=== PATIENT | female | born 1995 | race Caucasian/White ===

== ENCOUNTER 2020-04-08 10:34 | Outpatient (CLI) | payer BC ==
[~2020-04-08] VITALS: Ht 180.3 cm; Wt 93.6 kg
--- NOTE | 2020-04-08 10:45 | NUR ---
Pt arrives on unit ambulatory with spouse. States "falling last night after triping over a door, getting out of a [id number]. I fell on my left arm, and then fell to my left side then onto my back." Denies ctx, vaginal bleeding, LOF, and reports GFM. EFM x2 and toco applied. VSS. Reactive FHR strip cat 1 x2. Admission assessment completed. Dr. Ohara notified. Orders to observe x 1 hour and can discharge if FHR remains Cat 1.
[2020-04-08] MEDS ORDERED: PRENATAL TABLET PO (10:53)
[2020-04-08] MEDS ORDERED: FERROUSGLUC256MG (10:54)
[2020-04-08] MEDS ORDERED: TYLENOL 500MG500 MG PO (10:54)
[2020-04-08 11:15] VITALS: BP 139/86; PULSE 118
[2020-04-08 11:46] VITALS: BP 128/86; PULSE 95
== END 2020-04-08 11:50 | disposition home or self-care (01) ==
LOC: LDRO 10:34
DX: O9A.213 Injury, poisoning and certain other consequences of external causes complicating pregnancy, third trimester (principal); Z3A.31 31 weeks gestation of pregnancy

== ENCOUNTER 2020-04-30 16:12 | Outpatient (CLI) | payer BC ==
[~2020-04-30] VITALS: Ht 188 cm; Wt 97.3 kg
[~2020-04-30 16:12] MED LIST: FERROUSGLUC256MG; PRENATAL TABLET PO; TYLENOL 500MG500 MG PO
--- NOTE | 2020-04-30 16:15 | NUR ---
Pt arrives on unit ambulatory with spouse for pelvic pressure and back pain starting last night that increased at 1400. Denies LOF, vaginal bleeding, reports GFM. Changed into clean gown. EFM x2 and toco applied. VSS. Admission assessment complete. SVE per this RN /-2. Dr. Ohara notified. Orders for terb and betamethasone. See EMAR.
[2020-04-30 17:20] VITALS: BP 114/92; PULSE 108; TEMP 98.2
[2020-04-30 17:28] VITALS: BP 127/79; PULSE 109
== END 2020-04-30 17:35 | disposition home or self-care (01) ==
LOC: LDRO 16:12
DX: O26.93 Pregnancy related conditions, unspecified, third trimester (principal); Z3A.34 34 weeks gestation of pregnancy
CPT/HCPCS: J0702; J3105

== ENCOUNTER 2020-05-01 07:33 | Outpatient (CLI) | payer BC ==
[~2020-05-01] VITALS: Ht 188 cm; Wt 93.4 kg
--- NOTE | 2020-05-01 08:00 | NUR ---
PATIENT HERE AT 0715 STATING SHE IS HERE FOR A BETAMETHASONE INJECTION. PATIENT ON EFM. VITALS OBTAINED. DR STAUFFER CALLED AT 0732 FOR ORDERS. ORDER FOR NST AND BETAMETHASON AND SEND PATIENT HOME. PATIENT HERE WITH . PATIENT DENIES LEAKING OF FLUID, BLEEDING, OR CONTRACTIONS. IRRIBILITY TRACED ON EFM. PATIENT OFF EFM AT 0751- PATIENT GIVEN INSTRUCTIONS ON EARLY LABOR AND BLEEDING. THIS NURSE STATED TO PATIENT THAT IF CONTRACTIONS ARE CLOSER THAN 5 MINS APART, COME BACK. ANY BLEEDING OR LEAKING OF FLUID, PLEASE RETURN. PATIENT UNDERSTOOD. 0800- AMBULATED OFF UNIT WITH
== END 2020-05-01 08:00 | disposition home or self-care (01) ==
LOC: LDRO 07:33
DX: Z34.93 Encounter for supervision of normal pregnancy, unspecified, third trimester (principal); Z3A.34 34 weeks gestation of pregnancy; Z79.52 Long term (current) use of systemic steroids
CPT/HCPCS: J0702

== ENCOUNTER 2020-05-05 13:57 | Outpatient (CLI) | payer BC ==
[~2020-05-05] VITALS: Ht 182.9 cm; Wt 93.6 kg
--- NOTE | 2020-05-05 14:10 | NUR ---
1410- 35.5 G1L0 arrives on unit with complaints of back pain that comes and goes that started on Sunday. Ambulatory to [facility]4 with spouse. Oriented to room. Instructed to change into gown. 1415- RN at bedside. EFM explained and placed. SVE by Aamir Gould RN. 3. Patient reports normal movement x2. Denies any LOF or VB. Assessment completed. VS obtained.
[2020-05-05 14:22] VITALS: BP 117/77; PULSE 104; TEMP 98.9
--- NOTE | 2020-05-05 14:38 | NUR ---
1438- Roles updated on patient. See physician notification. 1450- Patient and family updated on plan of care. Baby A & B with Cat I strips. EFM off. Patient up to bathroom to change. 1500- Discharge instructions reviewed with patient and who verbalize understanding. Ambulatory off unit.
[2020-05-05 14:50] VITALS: BP 114/74; PULSE 106; TEMP 98.9
== END 2020-05-05 15:00 | disposition home or self-care (01) ==
LOC: LDRO 13:57
DX: O26.893 Other specified pregnancy related conditions, third trimester (principal); M54.9 Dorsalgia, unspecified; Z3A.35 35 weeks gestation of pregnancy

== ENCOUNTER → 2020-05-18 | Outpatient (CLI) | payer BC ==
[~2020-05-18] MED LIST changes: +MOTRIN 800800 MG/TAB PO; +NATURAL IRON65 MG; +PERCOCET 325 MG1 TA2 PO
== END | disposition still patient (30) ==
LOC: ZCOL.LAB 08:00
DX: Z20.828 Contact with and (suspected) exposure to other viral communicable diseases (principal)

== ENCOUNTER 2020-05-21 08:35 | Inpatient (IN) | payer BC ==
[2020-05-21] VITALS (18 sets, daily range): BP systolic 110–136; BP diastolic 65–95; PULSE 71–104; TEMP 97.6–98.3
[~2020-05-21] VITALS: Ht 181.6 cm; Wt 97.7 kg
[~2020-05-21 08:35] MED LIST changes: -MOTRIN 800800 MG/TAB PO; -NATURAL IRON65 MG; -PERCOCET 325 MG1 TA2 PO
[2020-05-21] MEDS ORDERED: NATURAL IRON65 MG (08:53)
[2020-05-21 09:50] LABS: BASO % 0.4 % (0.0-2.0); EOS % 0.5 % (0-4.0); GRAN # 5.8 (1.4-6.5); GRAN % 74.4 % (42.2-75.2); HEMOGLOBIN 11.8 g/dl (12.5-16.0); LYMPH # 1.4 (1.2-3.4); LYMPH % 17.7 % (20.0-51.0); MEAN CELL VOLUME 76 fl (80.0-100.0); MEAN CORPUSCULAR HEMOGLOBIN 24 pg (27.0-31.0); MEAN CORPUSCULAR HGB CONC 32 g/dl (33.0-37.0); MEAN PLATELET VOLUME 10.6 fl (7.4-10.4); MONO # 0.5 (0.1-0.6); MONO % 6.6 % (1.7-9.3); PLATELET COUNT 200 K/mm3 (130-400); RED BLOOD COUNT 4.86 M/mm3 (4.10-5.30); REDCELL DISTRIBUTION WIDTH-CV 13.2 % (11.5-14.5)
[2020-05-21 09:51] LABS: HEMATOCRIT 36.7 % (37.0-47.0)
[2020-05-21] MEDS ORDERED: MOTRIN 800800 MG/TAB PO (10:26)
[2020-05-21] MEDS ORDERED: PERCOCET 325 MG1 TA2 PO (10:27)
[2020-05-22 03:20] VITALS: BP 117/70; PULSE 75; TEMP 98
[2020-05-22 08:25] VITALS: BP 129/70; PULSE 85; TEMP 97.6
[2020-05-22 16:30] VITALS: BP 113/65; PULSE 76; TEMP 98
[2020-05-22 21:30] VITALS: BP 121/71; PULSE 72; TEMP 98.2
[2020-05-23 08:30] VITALS: BP 117/68; PULSE 74; TEMP 98.1
[2020-05-23 15:15] VITALS: BP 122/68; PULSE 82; TEMP 97.8
[2020-05-23 19:30] VITALS: BP 131/74; PULSE 88; TEMP 98.3
[2020-05-24 09:30] VITALS: BP 124/70; PULSE 76; TEMP 98
== END 2020-05-24 17:10 | disposition home or self-care (01) | DRG 787 ==
LOC: OB 08:35
PROVIDERS: ADMIT Obstetrics & Gynecology
PROC: 10D00Z1 Extraction of Products of Conception, Low, Open Approach (ICD-10-PCS; principal; 2020-05-21)
DX: O32.1XX1 Maternal care for breech presentation, fetus 1 (principal); O99.12 Other diseases of the blood and blood-forming organs and certain disorders involving the immune mechanism complicating childbirth; D68.51 Activated protein C resistance; O30.043 Twin pregnancy, dichorionic/diamniotic, third trimester; Z37.2 Twins, both liveborn; O99.824 Streptococcus B carrier state complicating childbirth; Z3A.38 38 weeks gestation of pregnancy
CPT/HCPCS: J0690; J1100; J1885; J2370; J2405; J2590; J7120